=== PATIENT | female | born 1965 | race Caucasian/White ===

== ENCOUNTER 2021-10-09 22:34 | Emergency (ER) | payer BC, SELFPAY ==
[2021-10-09 22:52] VITALS: BP 127/79; PULSE 57; RESP 18; TEMP 37; O2SAT 99; BMI 27.7
--- NOTE | 2021-10-09 23:00 | CRLHL7_ITS ---
For Patients: As a result of the Century Cures Act, medical imaging exams and procedure reports are released immediately into your electronic medical record. You may view this report before your referring provider. If you have questions, please contact your health care provider. Indication: Trauma, fall, pain Technique: Three views of the left knee. Comparison: None Findings/Impression: No acute fracture or dislocation. Moderate joint effusion is present. Mild prepatellar soft tissue swelling. Fabella is noted. Slight lateral patellar tilt. Dictated by Tevin Olson MD @ 10/10/2021 12:14:06 AM (Electronically Signed)
--- NOTE | 2021-10-10 00:10 | CRLHL7_ITS ---
For Patients: As a result of the Century Cures Act, medical imaging exams and procedure reports are released immediately into your electronic medical record. You may view this report before your referring provider. If you have questions, please contact your health care provider. Indication: R/O TIBIAL PLATEAU FX,TRAUMA Technique: Noncontrast CT left knee. Please note that all CT scans at this facility use dose modulation, iterative reconstruction, and/or weight-based dosing when appropriate to reduce radiation dose to as low as reasonably achievable. 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 Lipohemarthrosis noted. Prepatellar soft tissue swelling. Traction osteophytes at the superior and inferior patella. No tibial plateau fracture. Intact fibular head. Normal distal femur. Degenerative changes. Impression: Nondisplaced intra-articular patellar fracture. Please note that all CT scans at this facility use dose modulation, iterative reconstruction, and/or weight-based dosing when appropriate to reduce radiation dose to as low as reasonably achievable. Dictated by Art Smith MD @ 10/10/2021 4:09:46 PM (Electronically Signed)
--- NOTE | 2021-10-10 00:11 | ED_ITS ---
HPI - General Adult General Time Seen by Provider: 12:02 Date Seen: 10/10/21 Chief complaint: Extremity Pain/Injury, Lower Stated complaint: Fall LT knee Time Seen by Provider: 10/09/21 22:59 Source: patient Mode of arrival: ambulatory Limitations: no limitations History of Present Illness HPI narrative: 56-year-old female who comes in today with knee injury. She tripped in her driveway and landed on her knees bilaterally. She has some abrasions on the right knee but primary complains of pain in the left knee. She feels like the kneecap is not in place. She denies head injury or other injury, she has not taken anything for her symptoms. Related Data Allergies Allergy/AdvReac Type Severity Reaction Status Date / Time No Known Drug Allergies Allergy Verified 10/09/21 22:51 Review of Systems Status of ROS: Reports: 10 or more systems reviewed and unremarkable except as noted in History and below PFSH PFSH Social History Smoking Status: Never smoker How often do you have a drink containing alcohol: never How often do you have six or more drinks on one occasion: Never AUDIT-C Alcohol total score: 0 Non-prescribed substance use: denies use Exam Const: Vital Signs, click to edit/add: Vital Signs - 24 hr 10/09/21 22:52 10/10/21 02:31 Temperature 98.6 F Pulse Rate [Pulse Oximeter] 57 L Respiratory Rate 18 16 Blood Pressure [Le ft Upper Arm] 127/79 Pulse Oximetry 99 Oxygen Delivery Me thod Room Air Documenting provider has reviewed patient's vital signs: yes Common no rmals: no apparent distress, oriented x3, alert and well nourished HENMT: Common normals: normocephalic, head/scalp atraumatic, external ears normal and external nose normal Head and scalp: normocephalic and atraumatic Nose: external nose normal External ear: external ears normal Eye: Common normals: PERRL and conjunctivae normal Conjunctiva: conjunctiva(e) normal Pupil: PERRL Neck & C-Spine: Common normals: full ROM, no lymphadenopathy and supple Chest: Common normals: palpation of chest normal Resp: Common normals: normal respiratory effort and clear to auscultation bilaterally Auscultation: clear to auscultation bilaterally Back & Pelvis: Common normals: thoracic and lumbar spine normal to inspection Extremity: Other: Abrasions of the right knee, no effusion, full spontaneous range of motion. Left knee- moderate effusion, diffuse tenderness, unable to test laxity due to pain, patella is in normal position, quadriceps mechanism intact Neuro: Common normals: oriented x3, CN's II-XII intact bilaterally and no focal motor deficits Sensorium/orientation: alert Psych: Common normals: mental status grossly normal Skin: Common normals: no rashes or lesions noted General skin exam: no rashes or lesions noted Course Course Hospital Course: Patient seen examined, prior records reviewed. Differential diagnosis includes but not limited to strain, sprain, patellar fracture, tibial plateau fracture, internal derangement. Patient with left knee pain, moderate effusion. X-ray reviewed prior to examination of the patient was negative but given large effusion, concern for subtle tibial plateau fracture. CT scan of the knee is ordered. Other possibility would be internal derangement which is certainly possible. Oxycodone ordered for pain. Vital Signs Vital signs: Initial Vital Signs Temperature 98.6 F 10/09/21 22:52 Temperature Source Temporal Artery Scan 10/09/21 22:52 Pulse Rate 57 L 10/09/21 22:52 Pulse Rhythm 10/09/21 22:52 Respiratory Rate 18 10/09/21 22:52 Blood Pressure 127/79 10/09/21 22:52 Blood Pressure Mean 95 10/09/21 22:52 Blood Pressure Position Sitting 10/09/21 22:52 Pulse Oximetry 99 10/09/21 22:52 Oxygen Delivery Method 10/09/21 22:52 Vital Signs Temperature 98.6 F 10/09/21 22:52 Pulse Rate 57 L 10/09/21 22:52 Respiratory Rate 18 10/09/21 22:52 Blood Pressure 127/79 10/09/21 22:52 Pulse Oximetry 99 10/09/21 22:52 Oxygen Delivery Method 10/09/21 22:52 Temperature 98.6 F 10/09/21 22:52 Pulse Rate 57 L 10/09/21 22:52 Respiratory Rate 16 10/10/21 02:31 Blood Pressure 127/79 10/09/21 22:52 Pulse Oximetry 99 10/09/21 22:52 Oxygen Delivery Method 10/09/21 22:52 Medical Decision Making Medical Records Medical records reviewed: Yes I reviewed the patient's medical records Lab Data Lab results reviewed: Yes I reviewed the patient's lab results Imaging Data Knee x-ray, left: My impression: Negative for acute fracture, moderate joint effusion Radiologist's impression: Same CT left knee: Attestation: I have reviewed the pertinent imaging results. Radiologist's impression: Acute fracture of the posterior patella with lipohemarthrosis Discharge Plan Discharge Clinical Impression: Effusion of left knee, Abrasion of knee, right, Fracture, patella Patient Disposition: Home, Self-Care Condition: Improved Instructions: Knee Sprain (DC), Patellar Fracture (ED), Abrasion (ED) Additional Instructions: Ice and elevation. Take Tylenol and ibuprofen for pain, oxycodone for severe pain. Follow-up with orthopedics in 5-7 days. Use crutches, do not bear weight on the left leg for the next 3-4 days. Apply immobilizer when you are able to straight your leg and wear this when you are around. Activity Level: No Restrictions Discharge Diet: Regular Follow Up/Referrals: Orthopedics, [facility] [Provider Group] Provider,Not a Local [Primary Care Provider] - Stand Alone Forms: [employer] Info Instructions
[2021-10-10] MEDS: OxyCODONE/APAP 5-325 TABLET 1 TAB PO (00:54)
[2021-10-10 02:31] VITALS: RESP 16
== END 2021-10-10 02:35 | disposition home or self-care (01) ==
LOC: ED 10-10 00:56
PROVIDERS: Emergency Provider Family Medicine
DX: S82.002A Unspecified fracture of left patella, initial encounter for closed fracture (principal); W18.30XA Fall on same level, unspecified, initial encounter; Y93.9 Activity, unspecified; Y92.014 Private driveway to single-family (private) house as the place of occurrence of the external cause
CPT/HCPCS: 73562; 73700; 99284; A9270